=== PATIENT | male | born 1995 | race African-American/Black ===

== ENCOUNTER 2017-01-01 03:13 | Emergency (ER) | payer MEDICAID, OTHER ==
[2017-01-01] MEDS ORDERED: predniSONE 20 MG TAB ONE ×2 (03:57)
[2017-01-01] MEDS ORDERED: Albuterol Sulfate 2.5 mg/3 ml Neb ONE (04:02)
== END 2017-01-01 04:47 | disposition home or self-care (01) ==
LOC: ERS 03:13
DX: J45.901 Unspecified asthma with (acute) exacerbation (principal); F90.9 Attention-deficit hyperactivity disorder, unspecified type; F31.9 Bipolar disorder, unspecified
CPT/HCPCS: 94644; J7506; J7611; J7620

== ENCOUNTER 2017-01-15 15:27 | Emergency (ER) | payer OTHER ==
[2017-01-15 15:52] LABS: Bilirubin Negative (Negative); Blood, Urine Negative (Negative); Glucose, Urine (Dipstick) Negative (Negative); Ketone, Urine Negative (Negative); Nitrite Negative (Negative); Protein, Urine (Dipstick) 30 mg/dL (Neg-Trace)
[2017-01-15 15:54] LABS: Bacteria/HPF None Seen HPF (None Seen); Hyaline Casts/LPF 0-3 HYALINE CAST LPF (0-3 Hyaline); Squamous Epithelial None Seen HPF (0-3)
[2017-01-15 15:59] LABS: RBC/HPF None Seen HPF (0-3)
[2017-01-15] MEDS ORDERED: Azithromycin 250 MG TAB ONE (16:26)
[2017-01-15] MEDS ORDERED: cefTRIAXone\\ROCEPHIN 250 MG VIAL ONE (16:26)
[2017-01-15] MEDS ORDERED: Lidocaine 1% (PF) 30 ML VIAL ONE (16:40)
== END 2017-01-15 16:47 | disposition home or self-care (01) ==
LOC: ERS 15:27
DX: N34.2 Other urethritis (principal); J45.909 Unspecified asthma, uncomplicated; F31.9 Bipolar disorder, unspecified; F90.9 Attention-deficit hyperactivity disorder, unspecified type
CPT/HCPCS: 81003; 81015; 87491; 87591; 96372; J0696; J2001

== ENCOUNTER 2017-02-10 03:05 | Emergency (ER) | payer OTHER ==
[2017-02-10] MEDS ORDERED: cefTRIAXone\\ROCEPHIN 250 MG VIAL ONE (03:30)
[2017-02-10] MEDS ORDERED: Azithromycin 250 MG TAB ONE ×2 (03:30→03:36)
[2017-02-10] MEDS ORDERED: Lidocaine 1% PF 5 ML VIAL ONE (03:30)
[2017-02-10 03:54] LABS: Bilirubin Negative (Negative); Blood, Urine Negative (Negative); Glucose, Urine (Dipstick) Negative (Negative); Ketone, Urine Trace mg/dL (Negative); Nitrite Negative (Negative); Protein, Urine (Dipstick) 30 mg/dL (Neg-Trace)
[2017-02-10 03:57] LABS: Bacteria/HPF None Seen HPF (None Seen); Hyaline Casts/LPF 0-3 HYALINE CAST LPF (0-3 Hyaline); RBC/HPF 0-3 HPF (0-3); Squamous Epithelial None Seen HPF (0-3)
== END 2017-02-10 03:47 | disposition home or self-care (01) ==
LOC: ERS 03:05
DX: J45.901 Unspecified asthma with (acute) exacerbation (principal); F31.9 Bipolar disorder, unspecified; F90.9 Attention-deficit hyperactivity disorder, unspecified type
CPT/HCPCS: 81003; 81015; 87491; 87591; 96372; J0696; J2001

== ENCOUNTER 2017-02-18 18:13 | Emergency (ER) | payer OTHER ==
[2017-02-18] MEDS ORDERED: cefTRIAXone\\ROCEPHIN 250 MG VIAL ONE (19:06)
[2017-02-18] MEDS ORDERED: Azithromycin 250 MG TAB ONE (19:06)
[2017-02-18] MEDS ORDERED: Lidocaine 1% PF 5 ML VIAL ONE (19:06)
== END 2017-02-18 19:38 | disposition home or self-care (01) ==
LOC: ERS 18:13
DX: N34.2 Other urethritis (principal); J45.909 Unspecified asthma, uncomplicated; F31.9 Bipolar disorder, unspecified; F90.9 Attention-deficit hyperactivity disorder, unspecified type
CPT/HCPCS: 87070; 87205; 96372; J0696; J2001

== ENCOUNTER 2017-02-27 10:41 | Emergency (ER) | payer OTHER ==
[2017-02-27] MEDS ORDERED: Azithromycin 250 MG TAB ONE (12:07)
[2017-02-27] MEDS ORDERED: predniSONE 20 MG TAB ONE (12:07)
--- NOTE | 2017-02-27 12:33 | RAD ---
CHEST 2 VIEWS: HISTORY: Wheezing and cough. COMPARISON: Chest 2 views: DATE: 08/02/15. FINDINGS: Lungs are clear. No pneumothorax or effusion. Cardiac silhouette and mediastinal contours are withi n normal limits. IMPRESSION: No acute intrathoracic abnormality. No significant change. POS: OFF
== END 2017-02-27 13:02 | disposition home or self-care (01) ==
LOC: ERS 10:41
DX: J45.901 Unspecified asthma with (acute) exacerbation (principal); F31.9 Bipolar disorder, unspecified; F90.9 Attention-deficit hyperactivity disorder, unspecified type
CPT/HCPCS: 71020; 94640; J7506; J7620

== ENCOUNTER 2017-04-20 21:49 | Emergency (ER) | payer OTHER ==
--- NOTE | 2017-04-20 23:18 | RAD ---
CHEST 2 VIEWS: Date: 04/20/17 HISTORY: Dyspnea. COMPARISON: 02/27/17. FINDINGS: Normal cardiac silhouette. Lungs and pleural spaces are clear. No pneumothorax or osseous abnormaliti es. IMPRESSION: No acute cardiopulmonary process. POS: [id number]
[2017-04-20] MEDS ORDERED: predniSONE 20 MG TAB ONE (23:22)
== END 2017-04-21 00:20 | disposition home or self-care (01) ==
LOC: ERS 21:49
DX: J45.21 Mild intermittent asthma with (acute) exacerbation (principal); B34.9 Viral infection, unspecified; F31.9 Bipolar disorder, unspecified; F90.9 Attention-deficit hyperactivity disorder, unspecified type
CPT/HCPCS: 71046; 94640; J7506; J7620

== ENCOUNTER 2017-07-18 09:39 | Emergency (ER) | payer OTHER ==
[2017-07-18] MEDS ORDERED: predniSONE 20 MG TAB ONE (10:20)
[2017-07-18] MEDS ORDERED: cefTRIAXone\\ROCEPHIN 250 MG VIAL ONE (10:32)
[2017-07-18] MEDS ORDERED: Lidocaine 1% (PF) 30 ML VIAL ONE (10:32)
[2017-07-18 10:57] LABS: Bilirubin Negative (Negative); Blood, Urine Negative (Negative); Clarity CLEAR (Clear); Glucose, Urine (Dipstick) Negative (Negative); Leukocyte Trace (Negative); Nitrite Negative (Negative); Protein, Urine (Dipstick) 30 mg/dL (Neg-Trace); Specific Gravity, Urine 1.038 (1.002-1.036)
[2017-07-18 11:02] LABS: Bacteria/HPF None Seen HPF (None Seen); Hyaline Casts/LPF 4-6 HYALINE CAST LPF (0-3 Hyaline); RBC/HPF 0-3 HPF (0-3); Squamous Epithelial 0-3 HPF (0-3)
[2017-07-21 01:20] LABS: Chlamydia by PCR Not Detected (NotDetected); GC by PCR Not Detected (NotDetected)
== END 2017-07-18 10:56 | disposition home or self-care (01) ==
LOC: ERS 09:39
DX: J45.901 Unspecified asthma with (acute) exacerbation (principal); N34.2 Other urethritis; F90.9 Attention-deficit hyperactivity disorder, unspecified type; Z79.51 Long term (current) use of inhaled steroids
CPT/HCPCS: 81003; 81015; 87086; 87491; 87591; 94640; 96372; J0696; J2001; J7506; J7620

== ENCOUNTER 2017-11-14 09:02 | Emergency (ER) | payer MEDICAID ==
[2017-11-14 09:41] LABS: #Eosinphils 0.2 thou/uL (0.0-0.7); #Monocytes 0.4 thou/uL (0.11-0.59); #Neutrophils 3.9 thou/uL (1.40-6.50); %Basophils 0.6 % (0.0-1.0); %Eosinophils 3.4 % (0.0-10.0); %Lymphocytes 30.8 % (21.0-51.0); %Neutrophils 59.2 % (42.0-75.0); Mean Corpuscular HGB CONC 34.1 g/dL (32.0-36.0); Mean Corpuscular Hemoglobin 34.2 pg (27.0-31.0); Mean Platelet Volume 7.5 fL (7.4-10.4); Platelet Count 267 thou/uL (130-400); RBC Distribution Width 11.4 % (11.5-14.5); Red Blood Cell (RBC) Count 4.09 mill/uL (4.70-6.10); White Blood Cell (WBC) Count 6.6 thou/uL (4.8-10.8)
[2017-11-14 09:57] LABS: ALT (SGPT) 15 U/L (8-55); AST (SGOT) 17 U/L (5-34); Albumin 4.4 g/dL (3.5-5.0); Alkaline Phosphatase 58 U/L (40-150); Anion Gap 13 mmol/L (10-20); BUN (Urea Nitrogen) 11 mg/dL (8.9-20.6); Bilirubin, Total 1.7 mg/dL (0.2-1.2); Calc. Creatinine Clearance 0 mL/min (70-130); Calcium 9.5 mg/dL (7.8-10.44); Carbon Dioxide 25 mmol/L (22-29); Chloride 107 mmol/L (98-107); Estimated GFR-MDRD Greater than 90; Globulin 2.7 g/dL (2.4-3.5); Glucose 101 mg/dL (70-105); Protein, Total 7.1 g/dL (6.0-8.3); Sodium 141 mmol/L (136-145)
[2017-11-14 10:18] LABS: Bilirubin Small (Negative); Blood, Urine Trace (Negative); Glucose, Urine (Dipstick) Negative (Negative); Leukocyte Trace (Negative); Nitrite Negative (Negative); Protein, Urine (Dipstick) 30 mg/dL (Neg-Trace); Urobilinogen 0.2 mg/dL (0.2-1.0)
[2017-11-14 10:21] LABS: Clarity Clear (Clear)
[2017-11-14 10:31] LABS: Bacteria/HPF None Seen HPF (None Seen); Hyaline Casts/LPF 0-3 HYALINE CAST LPF (0-3 Hyaline); Squamous Epithelial 0-3 HPF (0-3)
[2017-11-14] MEDS ORDERED: Lidocaine 1% PF 5 ML VIAL ONE (10:57)
[2017-11-14] MEDS ORDERED: cefTRIAXone\\ROCEPHIN 250 MG VIAL ONE (10:57)
[2017-11-16 18:57] LABS: Chlamydia by PCR Not Detected (NotDetected); GC by PCR DETECTED (NotDetected)
== END 2017-11-14 11:17 | disposition home or self-care (01) ==
LOC: ERS 09:02
DX: N34.1 Nonspecific urethritis (principal); J45.909 Unspecified asthma, uncomplicated; F31.9 Bipolar disorder, unspecified; F90.9 Attention-deficit hyperactivity disorder, unspecified type
CPT/HCPCS: 36415; 80053; 81003; 81015; 85025; 87491; 87591; 96372; J0696; J2001

== ENCOUNTER 2018-06-16 15:59 | Emergency (ER) | payer MEDICAID ==
[2018-06-16 18:05] LABS: Bilirubin Negative (Negative); Blood, Urine Negative (Negative); Clarity CLEAR (Clear); Glucose, Urine (Dipstick) Negative (Negative); Leukocyte Negative (Negative); Nitrite Negative (Negative); Protein, Urine (Dipstick) 30 mg/dL (Neg-Trace); Specific Gravity, Urine 1.015 (1.002-1.036)
[2018-06-16 18:20] LABS: RBC/HPF None Seen HPF (0-3)
[2018-06-16 18:21] LABS: Bacteria/HPF None Seen HPF (None Seen); Hyaline Casts/LPF NONE SEEN LPF (0-3 Hyaline); Squamous Epithelial None Seen HPF (0-3); WBC/HPF None Seen HPF (0-3)
[2018-06-16] MEDS ORDERED: cefTRIAXone\\ROCEPHIN 250 MG VIAL ONE (18:23)
[2018-06-16] MEDS ORDERED: Azithromycin 250 MG TAB ONE (18:23)
[2018-06-16] MEDS ORDERED: Lidocaine 1% PF 5 ML VIAL ONE (18:24)
[2018-06-19 00:26] LABS: Chlamydia by PCR DETECTED (NotDetected); GC by PCR Not Detected (NotDetected)
== END 2018-06-16 18:52 | disposition home or self-care (01) ==
LOC: ERS 15:59
DX: R36.9 Urethral discharge, unspecified (principal); J45.909 Unspecified asthma, uncomplicated; F31.9 Bipolar disorder, unspecified; F90.9 Attention-deficit hyperactivity disorder, unspecified type
CPT/HCPCS: 81003; 81015; 87491; 87591; 96372; J0696; J2001